=== PATIENT | male | born 2000 | race Caucasian/White ===

== ENCOUNTER 2020-07-31 16:28 | Emergency (ER) | payer OTHER ==
[~2020-07-31] VITALS: Ht 170.2 cm; Wt 58.8 kg
[2020-07-31] MEDS ORDERED: LIDOCAINE 1% MDV 20ML VIAL SC ONE (17:40)
[2020-07-31] MEDS ORDERED: DERMABOND TOPICAL SKIN ADHESIVE TOP ONE (18:20)
--- NOTE | 2020-07-31 18:32 | REP ---
INDICATION: foreign body. COMPARISON: None TECHNIQUE: Three limited views FINDINGS: There is no evidence of a radiopaque foreign body outside of previous dental procedures IMPRESSION: As above <Electronically signed by Jeet King > 07/31/20 0702
[2020-07-31] MEDS ORDERED: PERI12LIQ PO (18:45)
[2020-07-31 18:58] VITALS: BP 133/69
== END 2020-07-31 19:00 | disposition home or self-care (01) ==
LOC: M ED 16:28
DX: S01.511A Laceration without foreign body of lip, initial encounter (principal); S02.5XXA Fracture of tooth (traumatic), initial encounter for closed fracture; W27.0XXA Contact with workbench tool, initial encounter; Y92.098 Other place in other non-institutional residence as the place of occurrence of the external cause; F17.200 Nicotine dependence, unspecified, uncomplicated